=== PATIENT | female | born 1985 | race Two or more races ===

== ENCOUNTER → 2017-08-23 | Emergency (ER) | payer OTHER ==
[~2017-08-23] VITALS: Ht 162.6 cm; Wt 52.2 kg
[~2017-08-23] MED LIST: CLONAZEPAM0.5 MG; DEXILANT60 MG; DOLOGESIC 500-1 EACH; URIN D.S. TABL1 EACH; ZANTAC150 M3
== END | disposition left against medical advice (07) ==
LOC: ER 00:46
DX: Z53.20 Procedure and treatment not carried out because of patient's decision for unspecified reasons (principal)

== ENCOUNTER 2017-11-29 19:43 | Inpatient (IN) | payer OTHER ==
[~2017-11-29] VITALS: Ht 162.6 cm; Wt 51.3 kg
== END 2017-12-13 12:41 | disposition home or self-care (01) | DRG 373 ==
LOC: ER 19:43 → SEC-K 11-30 06:27 → SURH 11-30 19:21 → SEC-K 12-01 01:38 → MEDI 12-01 14:53 → SURH 12-01 14:53
PROC: B030ZZZ Magnetic Resonance Imaging (MRI) of Brain (ICD-10-PCS; 2017-11-30)
PROC: BT43ZZZ Ultrasonography of Bilateral Kidneys (ICD-10-PCS; 2017-11-30)
PROC: 8E0ZXY6 Isolation (ICD-10-PCS; 2017-11-30)
PROC: 4A00X4Z Measurement of Central Nervous Electrical Activity, External Approach (ICD-10-PCS; principal; 2017-12-01)
PROC: B246ZZZ Ultrasonography of Right and Left Heart (ICD-10-PCS; 2017-12-01)
PROC: 4A12X4Z Monitoring of Cardiac Electrical Activity, External Approach (ICD-10-PCS; 2017-12-01)
DX: A07.1 Giardiasis [lambliasis] (principal); K29.00 Acute gastritis without bleeding; R55 Syncope and collapse; I45.6 Pre-excitation syndrome
CPT/HCPCS: 70551

== ENCOUNTER 2018-11-20 11:49 | Emergency (ER) | payer OTHER ==
[~2018-11-20] VITALS: Ht 162.6 cm; Wt 46.7 kg
[2018-11-20] MEDS ORDERED: CELEXA20 MG PO (12:52)
[2018-11-20] MEDS ORDERED: ZANTAC300 MG PO (12:53)
== END 2018-11-20 15:59 | disposition home or self-care (01) ==
LOC: ER 11:49
DX: B96.0 Mycoplasma pneumoniae [M. pneumoniae] as the cause of diseases classified elsewhere (principal)

== ENCOUNTER 2018-12-02 03:06 | Emergency (ER) | payer OTHER ==
[~2018-12-02] VITALS: Ht 162.6 cm; Wt 46.7 kg
[~2018-12-02 03:06] MED LIST changes: +CELEXA20 MG PO; +ZANTAC300 MG PO
== END 2018-12-02 14:21 | disposition home or self-care (01) ==
LOC: ER 03:06
DX: K52.9 Noninfective gastroenteritis and colitis, unspecified (principal); E86.0 Dehydration

== ENCOUNTER 2020-09-28 10:31 | Outpatient (CLI) | payer OTHER | END 2020-09-28 10:42 | disposition home or self-care (01) | LOC: SONOGRAMA 10:31 | PROVIDERS: ATTEND Pathology Anatomic Pathology & Clinical Pathology | DX: E04.2 Nontoxic multinodular goiter (principal) ==

== ENCOUNTER 2021-02-25 11:35 | Outpatient (CLI) | payer OTHER | END 2021-02-25 11:41 | disposition home or self-care (01) | LOC: SONOGRAMA 11:35 | PROVIDERS: ATTEND Pathology Anatomic Pathology & Clinical Pathology | DX: R59.1 Generalized enlarged lymph nodes (principal) ==

== ENCOUNTER 2021-03-12 11:15 | Inpatient (IN) | payer OTHER ==
[~2021-03-12] VITALS: Ht 162.6 cm; Wt 44.0 kg
[2021-03-12] MEDS ORDERED: HUMIRA40 MG/0.2 (15:19)
[2021-03-12] MEDS ORDERED: IMURAN50 MG PO (15:20)
[2021-03-12] MEDS ORDERED: MILLIPRED5 MG PO (15:20)
[2021-03-12] MEDS ORDERED: CREON DR 3,0001 EACH PO (15:21)
[2021-03-15] MEDS ORDERED: SYNTHROID75 MCG (15:37)
[2021-03-15] MEDS ORDERED: EVOXAC30 MG (15:37)
[2021-03-15] MEDS ORDERED: HYDROXYCHLOROQ200 MG (15:37)
[2021-03-15] MEDS ORDERED: INTESTINEX680 M1 (15:38)
[2021-03-15] MEDS ORDERED: PREDNISONE20 M1 (15:38)
[2021-03-15] MEDS ORDERED: CREON DR 12,001 EACH (15:38)
[2021-03-15] MEDS ORDERED: OPTIMAL D31250 MCG (15:38)
== END 2021-03-17 09:36 | disposition home or self-care (01) | DRG 627 ==
LOC: ADM 11:15 → EDSTATUS 11:15 → SURH 03-14 11:15 → O/R 03-15 06:32 → SURH 03-15 11:15
PROVIDERS: ADMIT Surgery; ATTEND Surgery
PROC: 0GTJ0ZZ Resection of Thyroid Gland Isthmus, Open Approach (ICD-10-PCS; principal; 2021-03-15 13:45)
DX: C73 Malignant neoplasm of thyroid gland (principal); E89.2 Postprocedural hypoparathyroidism

== ENCOUNTER 2021-03-21 06:38 | Inpatient (IN) | payer OTHER ==
[~2021-03-21] VITALS: Ht 162.6 cm; Wt 41.7 kg
[~2021-03-21 06:38] MED LIST changes: +CREON DR 12,001 EACH; +CREON DR 3,0001 EACH PO; +EVOXAC30 MG; +HUMIRA40 MG/0.2; +HYDROXYCHLOROQ200 MG; +IMURAN50 MG PO; +INTESTINEX680 M1; +MILLIPRED5 MG PO; +OPTIMAL D31250 MCG; +PREDNISONE20 M1; +SYNTHROID75 MCG
== END 2021-03-25 13:42 | disposition home or self-care (01) | DRG 684 ==
LOC: ER 06:38 → SURH 12:58
PROVIDERS: ADMIT Surgery; ATTEND Surgery
PROC: 8E0ZXY6 Isolation (ICD-10-PCS; principal; 2021-03-21)
DX: N17.8 Other acute kidney failure (principal); E83.52 Hypercalcemia; E86.0 Dehydration; C73 Malignant neoplasm of thyroid gland